=== PATIENT | male | born 1940 | race Caucasian/White ===

== ENCOUNTER 2017-10-14 09:19 | Outpatient (CLI) | payer MEDICARE, BC ==
--- NOTE | 2017-10-14 10:06 | RAD ---
PA AND LATERAL CHEST: History: Dysnea. Comparison: 02-18-14 FINDINGS: Heart size is within normal limits. There are arthrosclerotic changes of the aorta. The lungs are cl ear of any infiltrates. There is some linear scarring in the bases. There are arthritic changes of t he spine. The bones appear somewhat demineralized. Arthritic changes of both shoulders are noted. IMPRESSION: No active intrathoracic disease. Stable chest. POS: [facility]
--- OUTSIDE RECORDS SUMMARY | 2017-10-14 10:12 | XMS | Clinical Summary ---
:1940 Author Organization [facility] Address [address] [place] [address] Phone Care Team Providers Name Role Phone , Primary Care Provider Unavailable Allergies Not on File Current Medications Not on file Active Problems Not on file Social History Tobacco Use Types Packs/Day Years Used Date Never Assessed Sex Assigned at Date Recorded Not on file Last Filed Vital Signs Not on file Plan of Treatment Not on file Results Not on filefrom Last 3 Months
== END 2017-10-14 09:20 | disposition home or self-care (01) ==
LOC: RAD 09:19
PROVIDERS: ATTEND Internal Medicine Critical Care Medicine
DX: R06.00 Dyspnea, unspecified (principal)
CPT/HCPCS: 71020

== ENCOUNTER 2018-02-03 09:27 | Outpatient (CLI) | payer MEDICARE, BC ==
--- NOTE | 2018-02-03 10:24 | RAD ---
CHEST TWO VIEWS: Comparison: 10-14-17 History: Dyspnea. FINDINGS: Atherosclerosis of the aorta. Normal cardiac silhouette. The pulmonary vessels and hilum are normal. Chronic changes in the left lung base. Mild hyperinflation. No pneumothorax or osseous abnormality. Chronic changes in the left shoulder. IMPRESSION: 1. Atherosclerosis. 2. Chronic changes left lung base. 3. Hyperinflation. POS: [facility]
== END 2018-02-03 09:28 | disposition home or self-care (01) ==
LOC: RAD 09:27
PROVIDERS: ATTEND Internal Medicine Critical Care Medicine
DX: R06.00 Dyspnea, unspecified (principal); I70.0 Atherosclerosis of aorta; R91.8 Other nonspecific abnormal finding of lung field
CPT/HCPCS: 71046

== ENCOUNTER 2018-03-03 09:59 | Outpatient (CLI) | payer MEDICARE, BC ==
--- NOTE | 2018-03-03 11:40 | RAD ---
TWO VIEWS CHEST: HISTORY: Dyspnea. COMPARISON: 02/03/2018 FINDINGS: Two views of the chest show a normal sized cardiomediastinal silhouette with atherosclerotic calcific ations in the aorta. There is no evidence of consolidation, mass, or pleural effusion. Degenerative changes are seen in the spine. IMPRESSION: No evidence of acute cardiopulmonary disease. POS: [facility]
== END 2018-03-03 10:00 | disposition home or self-care (01) ==
LOC: RAD 09:59
PROVIDERS: ATTEND Internal Medicine Critical Care Medicine
DX: R06.00 Dyspnea, unspecified (principal)
CPT/HCPCS: 71046

== ENCOUNTER 2019-02-23 09:24 | Outpatient (CLI) | payer MEDICARE, BC ==
--- NOTE | 2019-02-23 09:41 | RAD ---
EXAM: Chest PA and lateral: HISTORY: Dyspnea COMPARISON: 03/03/2018 FINDINGS: Lung jonas are clear. Vascular markings are normal. Heart size upper normal and stable. Vascularity normal and stable. Aortic calcification. Degenerative changes in the spine and shoulders. IMPRESSION: No acute finding
== END 2019-02-23 09:25 | disposition home or self-care (01) ==
LOC: RAD 09:24
PROVIDERS: ATTEND Internal Medicine Critical Care Medicine
DX: R06.00 Dyspnea, unspecified (principal)
CPT/HCPCS: 71046